=== PATIENT | male | born 1970 | race Caucasian/White ===

== ENCOUNTER 2018-04-27 04:03 | Emergency (ER) | payer MEDICAID, SELFPAY ==
[2018-04-27 04:05] VITALS: BP 174/107; PULSE 78; RESP 22; TEMP 35.7; O2SAT 100; BMI 21.8
--- NOTE | 2018-04-27 04:30 | EKG12_ITS ---
Test Reason : CP,ABD PAIN Blood Pressure : / mmHG Vent. Rate : 082 BPM Atrial Rate : 082 BPM P-R Int : 108 ms QRS Dur : 076 ms QT Int : 386 ms P-R-T Axes : 080 078 069 degrees QTc Int : 450 ms Sinus rhythm with short [place] Otherwise normal ECG Confirmed by GERALD HUERTA, XAVI ([id number]), online content editor CLIVE TAYLOR ([id number]) on 05/01/2018 3:51:10 PM Referred By: DOUGLAS Confirmed By:XAVI DUARTE MD
--- NOTE | 2018-04-27 04:30 | RAD_ITS ---
HISTORY: PT STATED LT LOWER CHEST PAIN WITH SOB FOR 3 DAYS. SMOKER. NO HX OF HEART LUNG DISEASE EXAM:XR Chest 1 View: Portable COMPARISON: None FINDINGS: EKG leads in place. Normal heart size. Right basilar small infiltrate or atelectasis. Left lung appears clear. No vascular congestion or pleural effusion. No pneumothorax. The bony thorax appears intact. RAD/Chest 1 View (Portable) IMPRESSION: Right lower lobe small atelectasis or infiltrate. at 0521 Reported and signed by: Sathya Danielle MD Electronically Signed: Sathya Danielle, at 5:19 EST Tel , Service support ,
--- NOTE | 2018-04-27 04:31 | CT_ITS ---
HISTORY: left side abd pain that radiates to chest with n/v, sob TECHNIQUE: Helically acquired images were obtained of the abdomen and pelvis without oral or IV contrast as per renal stone protocol. A radiation dose optimization technique was used for this scan. IV Contrast dosage and agent: None. Oral contrast: None. COMPARISON: None FINDINGS: Both kidneys are normal in position. No renal or ureteral calculi and no hydronephrosis or hydroureter. The adrenal glands are not enlarged. Lung bases: No pleural effusion. Limited non-infusion exam. The liver, spleen, pancreas, gallbladder, and biliary system show no CT abnormality. Abdominal aorta is atherosclerotic and is normal in caliber. No ascites or retroperitoneal lymphadenopathy. GI tract: No obstruction. The appendix is not visualized. No pericecal or pericolonic inflammatory changes. Pelvis: Central prostatic calcifications. Urinary bladder is unremarkable. The pelvis shows no free fluid or lymphadenopathy. 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 Benign-appearing bone islands at the proximal left femur and upper left ilium. No acute osseous abnormality. CT/Abdomen/Pelvis without Cont IMPRESSION: 1. No obstructive uropathy or other acute disease identified. 2. Chronic changes, as above. Individualized dose optimization techniques were used for this CT. at 0537 Reported and signed by: Sathya Danielle MD Electronically Signed: Sathya Danielle, at 5:35 EST Tel , Service support ,
[2018-04-27 04:38] LABS: Absolute Lymphocyte Count 2.67 X10^3/ul (0.83-4.51); Absolute Neutrophil Count 8.6 X10^3/uL (2.0-7.7); Basophil# 0.05 X10^3/uL; Basophil% 0.4 % (0-1); Eosinophil# 0.02 X10^3/uL; Eosinophils% 0.2 % (0-5); Hematocrit 47.4 % (40-54); Hemoglobin 16.7 g/dl (13.0-16.5); Lymphocyte # 2.67 X10^3/ul (4.0); Lymphocyte % 21.6 % (19-41); Mean Corp Hgb Conc 35.2 g/gl (32-36); Mean Corpuscular Hgb 34.4 pg (27.0-32.0); Mean Corpuscular Volume 97.5 fL (80-94); Mean Platelet Vol. 8.8 fl (6.2-12.0); Monocyte# 1.04 X10^3/uL; Monocyte% 8.4 % (0-10); Neutrophil # 8.57 X10^3/uL (2.7-7.7); Neutrophil % 69.3 % (47-70); Platelet Count 208 K/mm3 (150-450); RBC Distribution Width CV 13.4 % (11.6-14.6); RBC Distribution Width SD 48.5 fl (35.1-43.9); Red Blood Count 4.86 M/mm3 (4.6-6.2); White Blood Count 12.4 K/mm3 (4.4-11.0)
[2018-04-27] MEDS: 0.9% Normal Saline 1,000 ML 1000 ML IV (04:39)
[2018-04-27] MEDS: Ondansetron 4 MG/2 ML Vial IV (04:39)
[2018-04-27] MEDS: Morphine 4 MG/ML Syringe IV (04:39)
[2018-04-27 04:40] LABS: POSITIVE COUNT NO; POSITIVE DIFFERENTIAL NO; POSITIVE MORPHOLOGY NO
[2018-04-27 04:50] LABS: ALB/GLOB Ratio 1.2 RATIO (0.9-2.4); AST(SGOT) 17 U/L (15-37); Alanine Aminotransfer ALT/SGPT 27 U/L (16-61); Albumin, Serum 4.1 g/dL (3.2-5.0); Alkaline Phosphatase 180 U/L (45-117); Anion Gap 10 (5-15); BUN 12 mg/dL (7-18); BUN/Creat Ratio 9.4 RATIO (10-20); Calcium,Total 9.2 mg/dL (8.5-10.1); Chloride 103 mmol/L (98-107); Creatinine, Serum 1.27 mg/dL (0.70-1.30); EST Glomerular Filtration Rate 64 mL/min (>60); Est Glom Filt Rate - Afr Amer 78 mL/min (>60); Estimated Creatinine Clearance 73.55 ml/min; Globulin 3.4 g/dL (2.2-4.2); Glucose 107 mg/dL (74-106); Lipase 54 U/L (73-393); Potassium 3.6 mmol/L (3.5-5.1); Protein, Total 7.5 g/dL (6.4-8.2); Sodium Level 141 mmol/L (136-145)
[2018-04-27 05:05] VITALS: BP 163/105; PULSE 56; RESP 13; TEMP 36.5; O2SAT 100
[2018-04-27 05:06] VITALS: BP 163/105; PULSE 59; RESP 13; TEMP 36.5
[2018-04-27 05:19] LABS: Lactic Acid 1.7 mmol/L (0.4-2.0)
[2018-04-27 05:45] LABS: Bacteria 0 SEEN /hpf (None Seen); Mucous, Urine 0 SEEN /hpf (<or=2+); Red Blood Cells-Urine 0 SEEN /hpf (0-5); White Blood Cells 0 SEEN /hpf (0-5)
[2018-04-27 05:47] LABS: Color, Urine Straw (Yellow); Glucose, Dipstick Normal (Normal); Ketone-Dipstick 5 mg/dl (Negative); Leukocyte Esterase-Dipstick Negative /ul (Negative); Nitrite-Dipstick Negative (Negative); Occult Blood-Urine Negative /ul (Negative); Protein-Dipstick Negative (Negative); Urine Bilirubin Dipstick Negative (Negative); Urine Clarity Clear (Clear); Urine Urobilinogen Normal (Normal)
[2018-04-27 05:55] LABS: Squamous Epithelial Cells - UA 0-5 SEEN /hpf (0-5)
--- NOTE | 2018-04-27 06:06 | ED.VISSUMM ---
- ER Visit Summary Date of Service: 04/27/18 Chief Complaint: Abdominal pain History of Present Illness: The patient is a 47 M who presents with abdominal pain. This is been occurring over the last 1 week. It is waxed and waned but gradually worsened. It became particularly worse over the last 6 hours. Also developed nausea and vomiting with 3 episodes of watery emesis. Emesis has been nonbloody and nonbilious. No diarrhea. He does report lower chest pain. He reports chills and sweats but no documented fever. No cough congestion rhinorrhea. He does note a prior history of similar symptoms about 2-1/2 years ago. He states at that time he was told his gallbladder was a little inflamed. He was put on Prilosec with marked improvement of symptoms. Physical Examination: Blood pressure 174/107 respiratory rate 22 afebrile Patient appears uncomfortable holding his abdomen pacing in the room. He is diaphoretic Heart is regular rate and rhythm Lungs are clear without rales rhonchi or wheezing Abdomen soft nondistended he does have diffuse tenderness but this is greatest in the left upper quadrant Test Results: EKG shows sinus rhythm at a rate of 82. Laboratory studies are notable for white blood cell count 12.4. Troponin negative. Lactic acid normal. Chest x-ray shows right lower lobe atelectasis versus infiltrate. CT the abdomen and pelvis shows no acute process. Emergency Department Course and Treatment: She was treated with IV fluids morphine and Zofran. He is significantly improved on reevaluation. Workup as above essentially unremarkable. He has a slight leukocytosis. However there is no obvious acute process on imaging of the abdomen. Chest x-ray was read as atelectasis versus infiltrate. This is on the side opposite of his pain. He has no cough or respiratory symptoms. I do not believe this represents pneumonia. Given the prior history of similar symptoms and improvement with proton pump inhibitor therapy I suspect a component of gastritis. We do not have Prilosec the patient was given a dose of Pepcid here prior to discharge as well as a prescription for Prilosec. He understands to return for new or worsening symptoms. He was given a referral for primary care physician. Treatment Plan: [] Disposition: Discharge Impression: Left upper quadrant abdominal pain This note was generated with [employer] dictation software. It may contain incorrect words, spelling, and punctuation that were not noted in review of the chart prior to signing ED Disposition - Plan for ED Patient: Chief Complaint: Abd Pain Referrals: Care Physician,No Primary [Primary Care Provider] -
--- NOTE | 2018-04-27 06:10 | ED.DEP ---
ED Disposition - Plan for ED Patient: Chief Complaint: Abd Pain Instructions: ED PUD Vs Gastritis Prescriptions: Omeprazole [Prilosec] 20 mg PO DAILY #30 cap Referrals: Care Physician,No Primary [Primary Care Provider] - Sanna Guaman MD [COURTESY STAFF PHYSICIAN] -
[2018-04-27 06:14] VITALS: BP 155/99; PULSE 70; RESP 15; O2SAT 95
[2018-04-27] MEDS: Famotidine 20 MG Tablet PO (06:16)
[2018-04-27 06:22] VITALS: BP 155/99; PULSE 70; RESP 15; O2SAT 95
--- OUTSIDE RECORDS SUMMARY | 2018-07-31 08:09 | XMS RPT_ITS ---
:1970 Author Organization [facility] Care Team Providers Name Role Phone Primay Care Physicia, No Primary Care Unavailable Riki Huertas Attending Unavailable PROBLEMS PROBLEMS No Problem Records FoundPROCEDURES PROCEDURES No Procedure Records FoundRESULTS RESULTS 12 LEAD ELECTROCARDIOGRAM Observed: 05/01/2018 Status: F Source: [place] 3:51 PM [facility] REPOSITORY [facility] Cardiovascular Services [address] [place] [address] 12 Lead EKG 04/27/18 0407 MR#: [id number] Acct: [id number] Name: RICK LOVING Rep #: [id number] : 1970 47 From: Kurt Duarte MD Attending Dr: Status: DEP ER Ordering Dr: Riki Huertas MD Date: 04/27/18 Location: ED Sex: M C Admitted: Test Reason : CP,ABD PAIN Blood Pressure : / mmHG Vent. Rate : 082 BPM Atrial Rate : 082 BPM P-R Int : 108 ms QRS Dur : 076 ms QT Int : 386 ms P-R-T Axes : 080 078 069 degrees QTc Int : 450 ms Sinus rhythm with short [place] Otherwise normal ECG Confirmed by KURT DUARTE MD ([id number]), food expeditor CLIVE TAYLOR ([id number]) on 05/01/2018 3:51:10 PM Referred By: DOUGLAS Confirmed By:KURT DUARTE MD 05/01/18 0669 Date Kurt Duarte MD CC: No Primary Care Physician; Riki Huertas MD Signed DISCHARGE INSTRUCTION Observed: 04/27/2018 Status: F Source: [place] 6:11 AM [facility] REPOSITORY [facility] Medical Records Department [address] [place] [address] Discharge Instruction 04/27/18 0610 MR#: [id number] Acct: [id number] Name: RICK LOVING Rep #: [id number] : 1970 47 From: Riki Huertas MD PCP: Care Physician, No Primary Status: REG ER ED Disposition - Plan for ED Patient: Chief Complaint: Abd Pain Instructions: ED PUD Vs Gastritis Prescriptions: Omeprazole [Prilosec] 20 mg PO DAILY #30 cap Referrals: Care Physician,No Primary [Primary Care Provider] - Sanna Guaman MD [COURTESY STAFF PHYSICIAN] - What to do if you have Problems For any increased pain, shortness of breath, bleeding, nausea or vomiting, chest pain, or any unexpected problems, contact your Primary Care Provider. Call [facility] ([phone]) or report to the closest Emergency Room. Call 911 if necessary. 04/27/18610 <Electronically signed by Riki Huertas MD> Date Riki Huertas MD Cosigner Signature (If Indicated): Date CC: No Primary Care Physician EMERGENCY DEPARTMENT Observed: 04/27/2018 Status: F Source: [place] SUMMARY 6:09 AM [facility] REPOSITORY [facility] Medical Records Department [address] [place] [address] Emergency Department Summary 04/27/18 0606 MR#: [id number] Acct: [id number] Name: RICK LOVING Rep #: [id number] : 1970 47 From: Riki Huertas MD PCP: Morgan Physician, No Primary Status: REG ER - ER Visit Summary Date of Service: 04/27/18 Chief Complaint: Abdominal pain History of Present Illness: The patient is a 47 M who presents with abdominal pain. This is been occurring over the last 1 week. It is waxed and waned but gradually worsened. It became particularly worse over the last 6 hours. Also developed nausea and vomiting with 3 episodes of watery emesis. Emesis has been nonbloody and nonbilious. No diarrhea. He does report lower chest pain. He reports chills and sweats but no documented fever. No cough congestion rhinorrhea. He does note a prior history of similar symptoms about 2-1/2 years ago. He states at that time he was told his gallbladder was a little inflamed. He was put on Prilosec with marked improvement of symptoms. Physical Examination: Blood pressure 174/107 respiratory rate 22 afebrile Patient appears uncomfortable holding his abdomen pacing in the room. He is diaphoretic Heart is regular rate and rhythm Lungs are clear without rales rhonchi or wheezing Abdomen soft nondistended he does have diffuse tenderness but this is greatest in the left upper quadrant Test Results: EKG shows sinus rhythm at a rate of 82. Laboratory studies are notable for white blood cell count 12.4. Troponin negative. Lactic acid normal. Chest x-ray shows right lower lobe atelectasis versus infiltrate. CT the abdomen and pelvis shows no acute process. Emergency Department Course and Treatment: She was treated with IV fluids morphine and Zofran. He is significantly improved on reevaluation. Workup as above essentially unremarkable. He has a slight leukocytosis. However there is no obvious acute process on imaging of the abdomen. Chest x-ray was read as atelectasis versus infiltrate. This is on the side opposite of his pain. He has no cough or respiratory symptoms. I do not believe this represents pneumonia. Given the prior history of similar symptoms and improvement with proton pump inhibitor therapy I suspect a component of gastritis. We do not have Prilosec the patient was given a dose of Pepcid here prior to discharge as well as a prescription for Prilosec. He understands to return for new or worsening symptoms. He was given a referral for primary care physician. Treatment Plan: [] Disposition: Discharge Impression: Left upper quadrant abdominal pain This note was generated with [employer] dictation software. It may contain incorrect words, spelling, and punctuation that were not noted in review of the chart prior to signing ED Disposition - Plan for ED Patient: Chief Complaint: Abd Pain Referrals: Care Physician,No Primary [Primary Care Provider] - What to do if you have Problems For any increased pain, shortness of breath, bleeding, nausea or vomiting, chest pain, or any unexpected problems, contact your Primary Care Provider. Call [facility] ([phone]) or report to the closest Emergency Room. Call 911 if necessary. 04/27/18 0609 <Electronically signed by Riki Huertas MD> Date Riki Huertas MD Cosigner Signature (If Indicated): Date CC: No Primary Care Physician URINALYSIS, COMPLETE Collected: 04/27/2018 Status: F Source: [place] 5:30 AM [facility] REPOSITORY Order Comment: How was Urine Obtained? CLEAN CATCH TYPE CODE TESTS RESULT OUT OF RANGE REFERENCE UNITS LAB L400.3000 Yellow COLOR Normal Straw LAB L400.3050 Clear Normal CLARITY Clear LAB L400.3200 Normal mg/dl Normal GLUCOSE, UR Normal LAB L400.3300 Negative mg/dL Normal BILIRUBIN URINE Negative LAB L400.3400 Negative mg/dl High 5 KETONE UR LAB L400.3465 1.002-1.030 Normal SP.GR. DIPSTX 1.010 LAB L400.3550 5.0 - 8.0 pH UR Normal 8.0 LAB L400.3600 Negative mg/dl PROT Normal DIPSTX Negative LAB L400.3700 Normal mg/dl Normal UROBILI Normal LAB L400.3750 Negative Normal NITRITE UR Negative LAB L400.3780 Negative /ul Normal OCCULT BLOOD-UR Negative LAB L400.3800 Negative /ul LEUK Normal ESTERASE Negative LAB L400.4050 0-5 /hpf WBC 0 Normal SEEN LAB L400.4100 0-5 /hpf 0 Normal RBC-UA SEEN LAB L400.4150 0-5 /hpf SQUAM Normal EPI 0-5 SEEN LAB L400.4300 None Seen /hpf 0 Normal BACTERIA SEEN LAB L400.4350 <or=2+ /hpf 0 Normal MUCUS, URINE SEEN Performed By: #### L400.0001 #### [facility] [address] [place], [address] LACTIC ACID Collected: 04/27/2018 Status: F Source: [place] 4:34 AM [facility] REPOSITORY Order Comment: Yes/No query for Sepsis Lactate Rule Y TYPE CODE TESTS RESULT OUT OF RANGE REFERENCE UNITS LAB L503.6005 0.4-2.0 mmol/L Normal LACTIC ACID 1.7 Performed By: #### L503.6005 #### [facility] [address] [facility] [place], [address] ABDOMEN/PELVIS WITHOUT Observed: 04/27/2018 Status: F Source: [place] CONT 4:32 AM [facility] REPOSITORY [facility] Imaging Services [address] [facility] [place] [address] Abdomen/Pelvis without Cont MR#: [id number] Acct: [id number] Name: RICK LOVING Rep #: [id number] : 1970 M 47 From: Sathya Danielle MD PCP: Care Physician, No Primary Status: REG ER Study: Abdomen/Pelvis without Cont Date of Exam: 04/27/18 Exam# [id number] Ordering Dr: Riki Huertas MD HISTORY: left side abd pain that radiates to chest with n/v, sob TECHNIQUE: Helically acquired images were obtained of the abdomen and pelvis without oral or IV contrast as per renal stone protocol. A radiation dose optimization technique was used for this scan. IV Contrast dosage and agent: None. Oral contrast: None. COMPARISON: None FINDINGS: Both kidneys are normal in position. No renal or ureteral calculi and no hydronephrosis or hydroureter. The adrenal glands are not enlarged. Lung bases: No pleural effusion. Limited non-infusion exam. The liver, spleen, pancreas, gallbladder, and biliary system show no CT abnormality. Abdominal aorta is atherosclerotic and is normal in caliber. No ascites or retroperitoneal lymphadenopathy. GI tract: No obstruction. The appendix is not visualized. No pericecal or pericolonic inflammatory changes. Pelvis: Central prostatic calcifications. Urinary bladder is unremarkable. The pelvis shows no free fluid or lymphadenopathy. 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 Benign-appearing bone islands at the proximal left femur and upper left ilium. No acute osseous abnormality. CT/Abdomen/Pelvis without Cont IMPRESSION: 1. No obstructive uropathy or other acute disease identified. 2. Chronic changes, as above. Individualized dose optimization techniques were used for this CT. at 0537 Reported and signed by: Sathya Danielle MD Electronically Signed: Sathya Danielle, at 5:35 EST Tel , Service support , CC: No Primary Care Physician; Riki Huertas MD International Specialist: Signed CHEST 1 VIEW Observed: 04/27/2018 Status: F Source: [place] (PORTABLE) 4:31 AM [facility] REPOSITORY [facility] Imaging Services [address] [place] [address] Chest 1 View (Portable) MR#: [id number] Acct: [id number] Name: RICK LOVING Rep #: [id number] : 1970 M 47 From: Sathya Danielle MD PCP: Care Physician, No Primary Status: REG ER Study: Chest 1 View (Portable) Date of Exam: 04/27/18 Exam# [id number] Ordering Dr: Riki Huertas MD HISTORY: PT STATED LT LOWER CHEST PAIN WITH SOB FOR 3 DAYS. SMOKER. NO HX OF HEART LUNG DISEASE EXAM:XR Chest 1 View: Portable COMPARISON: None FINDINGS: EKG leads in place. Normal heart size. Right basilar small infiltrate or atelectasis. Left lung appears clear. No vascular congestion or pleural effusion. No pneumothorax. The bony thorax appears intact. RAD/Chest 1 View (Portable) IMPRESSION: Right lower lobe small atelectasis or infiltrate. at 0521 Reported and signed by: Sathya Danielle MD Electronically Signed: Sathya Danielle, at 5:19 EST Tel , Service support , CC: No Primary Care Physician; Riki Huertas MD International Specialist: Signed CBC W/DIFF, AUTOMATED Collected: 04/27/2018 Status: F Source: [place] 4:15 AM [facility] REPOSITORY TYPE CODE TESTS RESULT OUT OF RANGE REFERENCE UNITS LAB L100.1000 4.4-11.0 K/mm3 High WBC 12.4 LAB L100.1200 4.6-6.2 M/mm3 Normal RBC 4.86 LAB L100.1300 13.0-16.5 g/dl High HGB 16.7 LAB L100.1400 40-54 % Normal HCT 47.4 LAB L100.1500 80-94 fL High MCV 97.5 LAB L100.1600 27.0-32.0 pg High MCH 34.4 LAB L100.1700 32-36 g/gl Normal MCHC 35.2 LAB L100.1810 11.6-14.6 % Normal RDW CV 13.4 LAB L100.1820 35.1-43.9 fl High RDW SD 48.5 LAB L100.1900 150-450 K/mm3 Normal PLT 208 LAB L100.2000 6.2-12.0 fl Normal MPV 8.8 LAB L100.2100 47-70 % Normal NEUT% 69.3 LAB L100.2200 19-41 % Normal LY% 21.6 LAB L100.2300 0-10 % Normal MONO% 8.4 LAB L100.2400 0-5 % Normal EO% 0.2 LAB L100.2500 0-1 % Normal BASO% 0.4 LAB L100.2550 0.0-0.9 % Normal IM GRAN % 0.100 Result Comment: IG% - Immature Granulocytes (promyelocytes, myelocytes and metamyelocytes) > 1% indicates that a LEFT SHIFT is Present. LAB L100.2620 2.0-7.7 X10 3/uL High Absolute Neut 8.6 LAB L100.2720 0.83-4.51 X10 3/ul Normal Absolute Lymph 2.67 Performed By: #### L100.0100 #### [facility] [address] [place], [address] COMPREHENSIVE METABOLIC Collected: 04/27/2018 Status: F Source: [place] H[place] 4:15 AM [facility] REPOSITORY TYPE CODE TESTS RESULT OUT OF RANGE REFERENCE UNITS LAB L501.0100 74-106 mg/dL High GLU 107 Result Comment: Fasting Glucose result from 100 to 125 mg/dL suggests IMPAIRED HOMEOSTASIS per A.D.A. criteria. Please note revised GLUCOSE reference range effective 2017. LAB L501.1000 7-18 mg/dL Normal BUN 12 LAB L501.1100 0.70-1.30 mg/dL Normal CREAT,SERUM 1.27 Result Comment: The validity of the calculated GFR AND GFRAA in patients over 70 years has not been determined. Clinical correlation is essential. LAB L501.1110 >60 mL/min Normal EST GFR 64 Result Comment: Non- GFR Calc LAB L501.1115 >60 mL/min Normal EST GFR - AA 78 Result Comment: GFR Calc LAB L501.1255 ml/min Normal Estimated CRCL 73.55 LAB L501.1300 10-20 RATIO Low BUN/CRE 9.4 LAB L501.1500 6.4-8. g/dL Normal 2 T PROT 7.5 LAB L501.1800 3.2-5. g/dL Normal 0 ALB 4.1 LAB L501.1950 2.2-4. g/dL Normal 2 GLOB 3.4 LAB L501.2000 0.9-2. RATIO Normal 4 A/G 1.2 LAB L501.2200 8.5-10 mg/dL Normal .1 CA 9.2 LAB L501.4100 15-37 U/L Normal AST 17 LAB L501.4305 45-117 U/L High ALK P 180 LAB L501.4405 16-61 U/L Normal ALT 27 LAB L501.4600 0.20-1 mg/dL Normal .00 T BILI 0.80 LAB L501.5300 136-14 mmol/L Normal 5 NA 141 LAB L501.5600 3.5-5. mmol/L Normal 1 K 3.6 LAB L501.5900 98-107 mmol/L Normal CL 103 LAB L501.6100 21.0-3 mmol/L Normal 2.0 CO2 28.0 LAB L501.6200 5-15 Normal GAP 10 Performed By: #### L500.4050, L501.2450, L501.4010 #### [facility] [address] [place], [address] LIPASE Collected: 04/27/2018 Status: F Source: [place] 4:15 AM [facility] REPOSITORY TYPE CODE TESTS RESULT OUT OF REFERENCE UNITS RANGE LAB L501.2450 73-393 U/L Low LIPASE 54 Performed By: #### L500.4050, L501.2450, L501.4010 #### [facility] [address] [place], [address] TROPONIN-I Collected: 04/27/2018 Status: F Source: [place] 4:15 AM [facility] REPOSITORY TYPE CODE TESTS RESULT OUT OF RANGE REFERENCE UNITS LAB L501.4010 <0.045 ng/mL Normal < 0.015 TROPONIN-I Result Comment: TROPONIN-I EXPECTED VALUES <0.045 Negative 0.045 - 0.590 Consistent with Cardiac Damage > OR = 0.600 Critical Value Not every elevated troponin is indicative of AK. These values should be used with clinical judgement in examining the patient's clinical picture for diagnosis. To establish a diagnosis of AK versus myocardial injury, there must be a demonstrated rise and/or fall in the troponin values, in addition to ischemic symptoms, EKG changes, new regional wall motion abnormality, and/or angiographical evidence. PLEASE NOTE: REFERENCE RANGES EDITED 17 Performed By: #### L500.4050, L501.2450, L501.4010 #### [facility] [address] [place], [address] ALLERGIES ALLERGIES DATE TYPE / CODE NAME / CODE REACTION SEVERITY SOURCE 04/27/2018 Drug bee venom Anaphylaxis Unknown [place] Allergy/416 protein ([facility] 266804(SNOM bee)/[id number] Hospital ED CT) 5(RXNORM) Repository ENCOUNTERS ENCOUNTERS ADMIT/DISCHARGE ACCOUNT ADMITTING ENCOUNTER LOCATION SOURCE NUMBER CLASS 04/27/2018/ [id number] Emergency [facility] [address] [facility] ing:ED Repository PAYERS PAYERS ENCOUNTER GUARANTOR PAYER SUBSCRIBER SOURCE 04/27/2018 RICK [place] Primary RICK Vazquez [id number] ARACELIS Insurance:CARESOURCTAM DENNEYB: [facility] Number: [id number] [address]Zzn: [phone] [id number] Repository [phone] () Date:2018-04-27[address]ATTN: [place] [address]IR: 04/27/2018 Secondary NOT GIVENUNK Philippe Insurance:SELF PAY [facility] Number: Effective Repository Date:2018-04-27
== END 2018-04-27 06:23 | disposition home or self-care (01) ==
PROVIDERS: Emergency Provider Emergency Medicine
DX: R10.12 Left upper quadrant pain (principal); R11.2 Nausea with vomiting, unspecified; R07.89 Other chest pain; Z72.0 Tobacco use
CPT/HCPCS: 71045; 74176; 80053; 81001; 83605; 83690; 84484; 85025; 93005; 96361; 96374; 96375; 99284; J7030; A4216; J2405

== ENCOUNTER 2018-12-25 16:19 | Emergency (ER) | payer MEDICAID, SELFPAY ==
[2018-12-25 16:20] VITALS: BP 139/82; PULSE 75; RESP 14; TEMP 36.7; O2SAT 100; BMI 19.1
[2018-12-25 16:43] VITALS: TEMP 36.7
--- NOTE | 2018-12-25 17:08 | CT_ITS ---
STUDY: CT ABDOMEN AND PELVIS WITH CONTRAST REASON FOR EXAM: Male, 48 years old. Left-sided abdominal pain. Nausea vomiting and fever RADIATION DOSAGE (If Supplied By Facility): CTDIvol = ( 10.37 ) mGy, DLP = ( 370.89 ) mGycm TECHNIQUE: Transaxial images were obtained from the dome of the diaphragm to the symphysis pubis without oral contrast. 100ML IV Isovue 300 was administered. Sagittal and coronal images were reconstructed. Individualized dose optimization techniques were used for this CT. COMPARISON: 04/27/2018 FINDINGS: The visualized lung bases are unremarkable. The visualized portions of the heart are within normal limits. Normal liver. Normal gallbladder and extrahepatic biliary system. Normal spleen. Normal pancreas. Normal bilateral adrenal glands. Normal right kidney. Normal left kidney. Evaluation of the GI tract is limited by absence of oral contrast. Cannot exclude stomach wall thickening. No dilated loops of bowel or evidence for obstruction. Cannot exclude segmental thickening of the terry of the small or large bowel. Cannot exclude enteritis or colitis. Moderate diffuse fecal retention. Diverticulosis without definite diverticulitis. Appendix not definitely seen. Normal abdominal aorta. Normal inferior vena cava. Normal retroperitoneum. Normal urinary bladder. Normal abdominal wall. Normal osseous structures. CT/Abdomen/Pelvis W IV Cont ONLY IMPRESSION: No definite acute abnormality. However evaluation of the GI tract is limited without oral contrast. Appendix not definitely seen. Electronically Signed: Rj Wayne MD at 18:43 EDT , Service support ,
--- NOTE | 2018-12-25 17:08 | ED.VIS.GI ---
History of Present Illness Chief Complaint: Nausea/Vomiting Informant: Patient - Abdominal Pain/Flank Pain Onset: Days - 4 Context: Gradual Onset - after eating pizza at [employer] Timing: Continuous Quality: Aching Location: LUQ - radiating into left low back Current Severity: Moderate Maximum Severity: Moderate Worsened by: Food - and vomiting Relieved by: Nothing - Nausea/Vomiting/Emesis GI Symptom: Nausea, Vomiting Onset: Days - 4 Quality: Nonbilious. Negative for: Blood streaks, Coffee ground, Hematemesis Severity: Severe - Diarrhea/Melena/Hematochezia GI Symptom: Diarrhea. Negative for: Melena, Hematochezia Onset: Days - 4 days ago, only lasted 1-2 days, now resolved Stool Quality: Negative for: Black, Maroon, JULIA per rectum Associated Symptoms: Negative for: Dysuria, Frequency, Hematuria, Urgency Narrative: Patient has been having fevers up to around 101. Now mostly vomiting. Initially he was vomiting having diarrhea, the abdominal pain started later. It has all been left-sided. Past Medical History - Allergies and Home Meds Allergies/Adverse Reactions: Allergies bee venom protein (honey bee) Allergy (Verified 12/25/18 16:22) Anaphylaxis Primary Care Physician: Bere Pulido [NON-STAFF] - Care Physician,No Primary [Primary Care Provider] - Past Medical History: None Surgical History: appendectomy Smoking Status: Current every day smoker Alcohol: None Review of Systems General: Reports: Fever, Malaise. Denies: Chills, Sweats Eyes: Denies: Visual changes - bilaterally, Diplopia ENT: Denies: Rhinorrhea, Sore throat Cardiovascular: Denies: Chest pain, Palpitations Respiratory: Denies: Dyspnea, Cough, Dyspnea on exertion Gastrointestinal: Reports: Abdominal pain, Nausea, Vomiting, Diarrhea - resolved now. Denies: Melena, Hematochezia Genitourinary: Denies: Dysuria, Hematuria, Frequency Musculoskeletal: Reports: Back pain. Denies: Extremity Pain Skin: Denies: Rash, Wounds Neurological: Denies: Headache, Weakness, Numbness Physical Exam Vital Signs/Narrative: Vital Signs Temp Pulse Resp BP Pulse Ox 12/25/18 16:43 98.1 F 12/25/18 16:20 98.1 F 75 14 139/82 H 100 Inital Vital Signs reviewed: Yes General: Well nourished, Well developed, No Acute Distress Head: Normocephalic, Atraumatic Eyes: Perrl, EOMI ENT: Moist mucous membranes, No rhinorrhea Neck: Supple, Nontender Cardiovascular: Regular rate, Regular rhythm, No murmurs Respiratory: No distress, CTA bilaterally, Chest nontender Abdomen: Soft, Nondistended, Normal bowel sounds, Tender - LUQ > LLQ; otherwise, NT, Guarding - voluntary LUQ. Negative for: Pulsatile mass Back: Nontender, Normal Inspection. Negative for: CVA tenderness Extremities: Nontender, No edema Skin: Normal color, No rash, No Trauma Neurological: Alert, Oriented x3, Cranial nerves II-XII grossly intact, Normal Strength, Normal Sensation, Normal Gait Psychological: Normal affect, Normal Mood Diagnostic/Tx/Re-eval Impressions Abdomen/Pelvis CT 12/25/18 17:08 IMPRESSION: No definite acute abnormality. However evaluation of the GI tract is limited without oral contrast. Appendix not definitely seen. Electronically Signed: Rj Wayne MD at 18:43 EDT , Service support , 12/25/18 17:08 Abdomen/Pelvis W IV Cont ONLY [CT] Stat Laboratory Results 12/25/18 12/25/18 12/25/18 17:41 17:41 18:10 WBC 7.8 RBC 4.47 L Hgb 15.6 Hct 43.8 MCV 98.0 H MCH 34.9 H MCHC 35.6 RDW Std Deviation 44.7 H RDW Coeff of Javi 12.3 Plt Count 173 MPV 9.0 Immature Gran % (Auto) 0.100 Neut % (Auto) 57.3 Lymph % (Auto) 32.4 Terry % (Auto) 9.1 Eos % (Auto) 0.6 Baso % (Auto) 0.5 Absolute Neuts (auto) 4.5 Absolute Lymphs (auto) 2.53 Nucleated RBC % 0 Sodium 141 Potassium 3.5 Chloride 105 Carbon Dioxide 32.0 Anion Gap 4 L BUN 12 Creatinine 1.03 Estim Creat Clear Calc 78.29 Est GFR (MDRD) Af Amer 99 Est GFR (MDRD) Non-Af 81 BUN/Creatinine Ratio 11.7 Glucose 83 Calcium 8.8 Urine Color Yellow Urine Clarity Clear Urine pH 6.0 Ur Specific [place] 1.020 Urine Protein Negative Urine Glucose (UA) Normal Urine Ketones 5 H Urine Occult Blood Negative Urine Nitrite Negative Urine Bilirubin Negative Urine Urobilinogen 1 H Ur Leukocyte Esterase 25 H Urine RBC 0 SEEN Urine WBC 0-5 SEEN Ur Squamous Epith Cells 0 SEEN Urine Bacteria 1+ Urine Mucus 3+ - Medical Decision Making CT shows no evidence of diverticulitis. He is feeling better after IV fluids and Zofran. Given that his diarrhea resolved I doubt food poisoning, and would not be able to test for that unless he provided diarrhea anyhow. More likely viral illness. Supportive care advised. Improved after zofran/IVF, still with some LUQ discomfort but not severe; will give bentyl and GI cocktail prior to discharge. Prescribed Zofran/bentyl and encouraged to return if worse. ED Disposition - Plan for ED Patient: Disposition: Home or Assisted Living Diagnosis: Gastroenteritis Instructions: FOOD POISONING or GASTROENTERITIS (5y-Adult) Prescriptions: Dicyclomine HCl [Bentyl] 20 mg PO . Q4-6H PRN #12 cap PRN Reason: abdominal pain Prescription Printed Ondansetron [Zofran] 8 mg PO Q8H PRN #12 tab PRN Reason: Nausea/Vomiting Prescription Printed Referrals: Bere Pulido [NON-STAFF] - 3-5 Days if not improving
[2018-12-25] MEDS: Ondansetron 4 MG/2 ML Vial IV (17:39)
[2018-12-25] MEDS: 0.9% Normal Saline 1,000 ML 1000 ML IV (17:39)
[2018-12-25] MEDS: Ketorolac 30 MG/ML Syringe IV (17:39)
[2018-12-25 17:42] VITALS: TEMP 37.1
--- NOTE | 2018-12-25 17:49 | CM.ED ---
SOCIAL WORK INFORMANT: SELF REFERRAL REASON FOR REFERRAL: NO PRIMARY CARE PHYSICIAN MET WITH PATIENT IN ROOM. INTRODUCED ROLE AND REASON FOR REFERRAL. PATIENT REPORTS USE TO HAVE PRIMARY CARE PHYSICIAN FEW YEARS AGO. PATIENT HAS INSURANCE THROUGH [employer]. PATIENT PROVIDED LIST OF LOCAL PHYSICIANS. PATIENT STATES DOES NOT LIKE COMING TO THE HOSPITAL AND DISCUSSED [facility] HOSPITALS. EMOTIONAL SUPPORT PROVIDED. PATIENT DENIES ANY FURTHER NEEDS. PLAN: HOME BEFORE. LIST OF PCP'S PROVIDED. COREY AGUAYO MSW, EXECUTIVE DIRECTOR OF NURSING.
[2018-12-25 17:55] LABS: Absolute Lymphocyte Count 2.53 X10^3/uL (0.83-4.51); Absolute Neutrophil Count 4.5 X10^3/uL (2.0-7.7); Basophil# 0.04 X10^3/uL; Basophil% 0.5 % (0-1); Eosinophil# 0.05 X10^3/uL; Eosinophils% 0.6 % (0-5); Hematocrit 43.8 % (40-54); Hemoglobin 15.6 g/dL (13.0-16.5); Lymphocyte # 2.53 X10^3/ul (4.0); Lymphocyte % 32.4 % (19-41); Mean Corp Hgb Conc 35.6 g/dL (32-36); Mean Corpuscular Hgb 34.9 pg (27.0-32.0); Monocyte# 0.71 X10^3/uL; Monocyte% 9.1 % (0-10); NRBC Flagged by Analyzer 0 % (0-5); Neutrophil # 4.46 X10^3/uL (2.7-7.7); Neutrophil % 57.3 % (47-70); Platelet Count 173 K/mm3 (150-450); RBC Distribution Width CV 12.3 % (11.6-14.6); RBC Distribution Width SD 44.7 fl (35.1-43.9); Red Blood Count 4.47 M/mm3 (4.6-6.2); White Blood Count 7.8 K/mm3 (4.4-11.0)
[2018-12-25 18:04] LABS: Anion Gap 4 (5-15); BUN 12 mg/dL (7-18); BUN/Creat Ratio 11.7 RATIO (10-20); Calcium,Total 8.8 mg/dL (8.5-10.1); Chloride 105 mmol/L (98-107); Creatinine, Serum 1.03 mg/dL (0.70-1.30); EST Glomerular Filtration Rate 81 mL/min (>60); Est Glom Filt Rate - Afr Amer 99 mL/min (>60); Estimated Creatinine Clearance 78.29 ml/min; Glucose 83 mg/dL (74-106); Potassium 3.5 mmol/L (3.5-5.1); Sodium Level 141 mmol/L (136-145)
[2018-12-25 18:23] LABS: Red Blood Cells-Urine 0 SEEN /hpf (0-5); Squamous Epithelial Cells - UA 0 SEEN /hpf (0-5)
[2018-12-25 18:24] VITALS: BP 121/78; PULSE 67; RESP 18; O2SAT 99
[2018-12-25 18:25] LABS: Color, Urine Yellow (Yellow); Glucose, Dipstick Normal (Normal); Ketone-Dipstick 5 mg/dl (Negative); Leukocyte Esterase-Dipstick 25 /ul (Negative); Nitrite-Dipstick Negative (Negative); Occult Blood-Urine Negative /ul (Negative); Protein-Dipstick Negative (Negative); Urine Bilirubin Dipstick Negative (Negative); Urine Clarity Clear (Clear); Urine Urobilinogen 1 mg/dl (Normal)
[2018-12-25 18:34] LABS: Bacteria 1+ /hpf (None Seen); Mucous, Urine 3+ /hpf (<or=2+); White Blood Cells 0-5 SEEN /hpf (0-5)
[2018-12-25] MEDS: Mag Hydrox/Al Hydrox/Simeth 30 ML UDC PO (19:17)
[2018-12-25 19:18] VITALS: BP 164/107; PULSE 60; O2SAT 98
[2018-12-25] MEDS: Dicyclomine 10 MG Capsule 20 MG PO (19:18)
== END 2018-12-25 19:24 | disposition home or self-care (01) ==
PROVIDERS: Emergency Provider Emergency Medicine
DX: K52.9 Noninfective gastroenteritis and colitis, unspecified (principal); F17.200 Nicotine dependence, unspecified, uncomplicated
CPT/HCPCS: 74177; 80048; 81001; 85025; 96361; 96374; 96375; 99284; J7030; Q9967; J2405

== ENCOUNTER → 2025-01-01 | Outpatient (CLI) | payer BC, SELFPAY ==
[2025-01-01 12:37] LABS: Hematocrit 42.4 % (40-54); Hemoglobin 14.2 g/dL (13.0-16.5); Immature Granulocytes Count 0.040 X10^3/uL (0.0-0.0); Mean Corp Hgb Conc 33.5 g/dL (32-36); Mean Corpuscular Volume 100.2 fL (80-94); Mean Platelet Vol. 8.9 fl (6.2-12.0); NRBC Flagged by Analyzer 0 % (0-5); Platelet Count 283 K/mm3 (150-450); RBC Distribution Width CV 14.4 % (11.6-14.6); RBC Distribution Width SD 54.0 fl (35.1-43.9); Red Blood Count 4.23 M/mm3 (4.6-6.2); White Blood Count 10.7 K/mm3 (4.4-11.0)
[2025-01-01 13:47] LABS: AST(SGOT) 22 U/L (<=37); Alanine Aminotransfer ALT/SGPT 34 U/L (<=46); Albumin, Serum 3.8 g/dL (3.5-5.0); Alkaline Phosphatase 233 U/L (40-129); Anion Gap 10 (5-15); BUN 13 mg/dL (4-19); BUN/Creat Ratio 13.5 RATIO (10-20); Calcium,Total 9.0 mg/dL (7.6-11.0); Carbon Dioxide 26.7 mmol/L (21.0-32.0); Chloride 105 mmol/L (98-108); Cholesterol 78 mg/dL (<=200); Globulin 2.6 g/dL (2.2-4.2); Glucose 98 mg/dL (70-99); Low Density Lipoprotein Calc. 26 mg/dL; Potassium 4.1 mmol/L (3.3-5.1); Triglycerides 68 mg/dL; Very Low Density Lipoprotein 14 mg/dL (5-40); cholesterol:hdl ratio screen 2.07
== END | disposition home or self-care (01) ==
DX: Z00.00 Encounter for general adult medical examination without abnormal findings (principal)
CPT/HCPCS: 36415; 80053; 80061; 83036; 84443; 85025